=== PATIENT | male | born 1990 | race Hispanic/Latino ===

== ENCOUNTER 2017-04-27 23:10 | Emergency (ER) | payer BC, OTHER ==
[~2017-04-27] VITALS: Ht 162.6 cm; Wt 90.4 kg
[~2017-04-27 23:10] MED LIST: CELE10TA; TRAZ100T
[2017-04-27 23:11] VITALS: BP 131/79
[2017-04-28] MEDS ORDERED: diphenhydrAMINE INJ 50MG/ML VIAL (J1200) IV STA (02:41)
[2017-04-28] MEDS ORDERED: dexameTHASONE 20 MG/5 ML VIAL (J1100) IV ONE (02:45)
[2017-04-28] MEDS ORDERED: PRED20TA PO (05:16)
== END 2017-04-28 06:20 | disposition home or self-care (01) ==
LOC: M ED 23:10
DX: L25.9 Unspecified contact dermatitis, unspecified cause (principal); F17.200 Nicotine dependence, unspecified, uncomplicated
CPT/HCPCS: 96374; 96375; 99283; J1100; J1200